=== PATIENT | female | born 1955 | race Caucasian/White ===

== ENCOUNTER → 2017-09-21 14:14 | Outpatient (CLI) | payer OTHER, SELFPAY ==
[2017-09-21 14:50] LABS: Add Manual Diff / Slide Review NO; Alanine Aminotransferase 27 IU/L (9-52); Albumin 4.2 g/dL (3.5-5.0); Albumin Globulin Ratio 1.2 (1.0-2.8); Alkaline Phosphatase 70 U/L (38-126); Aspartate Aminotransferase 19 IU/L (14-36); BUN Creatinine Ratio 21.4 (6-22); Basophils Percent Auto 0.9 % (0-2); Bilirubin Total 0.5 mg/dL (0.2-1.3); Blood Urea Nitrogen 15 mg/dL (7-17); Carbon Dioxide 28 mmol/L (22-32); Chloride 102 mmol/L (98-107); Eosinophils Percent Auto 2.4 % (2-4); Estimated Glomerular Filt Rate > 60.0 mL/min (>60); Globulin 3.4 g/dL (1.7-4.1); Glucose 143 mg/dL (80-110); HEMOLYSIS < 15 (0-50); Hematocrit 43.6 % (36-46); Hemoglobin 14.8 g/dL (12.0-16.0); Lymphocytes Percent Auto 23.3 % (25-40); Mean Corpuscular HGB Conc 33.9 % (30-36); Mean Corpuscular Hemoglobin 30.3 PG (26-34); Mean Corpuscular Volume 89.5 fL (80-100); Monocytes Percent Auto 6.3 % (3-14); Neutrophils Absolute Auto 6400 /uL (3000-5900); Neutrophils Percent Auto 67.1 % (50-75); Platelet Count 267 X10^3/uL (150-400); Potassium 4.1 mmol/L (3.4-5.1); Red Blood Cell Count 4.88 X10^6/uL (4.0-5.2); Red Cell Distribution Width 13.5 % (11.6-14.8); Sodium 142 mmol/L (137-145); Total Protein 7.6 g/dL (6.3-8.2); White Blood Cell Count 9.5 X10^3/uL (4.5-11.0)
[2017-09-23 16:27] LABS: Cancer Antigen 27.29 < 8 U/mL (< 38)
== END ==
PROVIDERS: Family Provider Internal Medicine; PCP Internal Medicine; Visit Provider Internal Medicine Hematology & Oncology
DX: C50.912 Malignant neoplasm of unspecified site of left female breast (principal)
CPT/HCPCS: 36415; 80053; 85025; 86300

== ENCOUNTER → 2017-09-26 11:25 | Outpatient (CLI) | payer OTHER, SELFPAY ==
--- NOTE | 2017-09-26 11:27 | DI.MG.S_ITS ---
UNILATERAL RIGHT DIGITAL SCREENING MAMMOGRAM 3D/2D WITH CAD POST MASTECTOMY: 09/26/2017 CLINICAL: Routine screening. Personal history of breast cancer. Comparison is made to exams dated: 09/19/2016 mammogram - [facility], 03/21/2016 mammogram, and 09/17/2015 mammogram - [facility]. The tissue of the right breast is predominantly fatty. Current study was also evaluated with a Computer Aided Detection (CAD) system. No significant masses, calcifications, or other findings are seen in the breast. There has been no significant interval change. IMPRESSION: NEGATIVE There is no mammographic evidence of malignancy. A 1 year screening mammogram is recommended. This exam was interpreted at Station ID: [id number]. NOTE: For mammograms, a report in lay terms will be sent to the patient. Approximately 15% of breast malignancies will not be visualized mammographically. In the management of a palpable breast mass, a negative mammogram must not discourage biopsy of a clinically suspicious lesion. Electronically Signed By: Lior gonzales/mei:09/26/2017 12:14:53 copy to: Mariah Roberts copy to: TIM GRANT letter sent: Normal Exam ACR BI-RADS Category 1: Negative [id number]
== END ==
PROVIDERS: Family Provider Internal Medicine; PCP Internal Medicine; Visit Provider Internal Medicine Hematology & Oncology
DX: Z12.31 Encounter for screening mammogram for malignant neoplasm of breast (principal); Z85.3 Personal history of malignant neoplasm of breast
CPT/HCPCS: 77063; 77065

== ENCOUNTER → 2017-12-14 10:57 | Outpatient (CLI) | payer OTHER, SELFPAY ==
[2017-12-14 12:50] LABS: Alanine Aminotransferase 21 IU/L (9-52); Albumin Globulin Ratio 1.2 (1.0-2.8); Alkaline Phosphatase 74 U/L (38-126); Aspartate Aminotransferase 19 IU/L (14-36); BUN Creatinine Ratio 21.3 (6-22); Bilirubin Total 0.3 mg/dL (0.2-1.3); Blood Urea Nitrogen 17 mg/dL (7-17); Calcium 9.5 mg/dL (8.4-10.2); Carbon Dioxide 28 mmol/L (22-32); Chloride 104 mmol/L (98-107); Estimated Glomerular Filt Rate > 60.0 mL/min (>60); Globulin 3.3 g/dL (1.7-4.1); Glucose 104 mg/dL (80-110); HEMOLYSIS < 15 (0-50); Potassium 4.3 mmol/L (3.4-5.1); Sodium 144 mmol/L (137-145); Total Protein 7.3 g/dL (6.3-8.2)
[2017-12-14 12:53] LABS: Add Manual Diff / Slide Review NO; Basophils Percent Auto 0.8 % (0-2); Eosinophils Percent Auto 0.9 % (2-4); Hematocrit 42.2 % (36-46); Lymphocytes Percent Auto 17.9 % (25-40); Mean Corpuscular HGB Conc 33.3 % (30-36); Mean Corpuscular Hemoglobin 30.2 PG (26-34); Mean Corpuscular Volume 90.7 fL (80-100); Monocytes Percent Auto 5.4 % (3-14); Neutrophils Absolute Auto 6000 /uL (3000-5900); Platelet Count 248 X10^3/uL (150-400); Red Blood Cell Count 4.66 X10^6/uL (4.0-5.2); Red Cell Distribution Width 13.4 % (11.6-14.8)
--- NOTE | 2017-12-14 15:03 | PC.NURSE ---
lymphocytes low at 19, ANC elevated at 6000. follow up appt on 12/20
[2017-12-15 15:53] LABS: Cancer Antigen 27.29 < 8 U/mL (< 38)
== END ==
PROVIDERS: Family Provider Internal Medicine; PCP Internal Medicine; Visit Provider Internal Medicine Hematology & Oncology
DX: C50.912 Malignant neoplasm of unspecified site of left female breast (principal)
CPT/HCPCS: 36415; 80053; 85025; 86300

== ENCOUNTER 2017-12-20 13:30 | Oncology outpatient (ONC) | payer OTHER, SELFPAY ==
--- NOTE | 2017-09-27 10:56 | ONC.PN ---
Assessment and Plan - Time Spent with Patient IMPRESSION: 1. T1c, N0, DUCTAL CARCINOMA THE LEFT BREAST STATUS DIAGNOSED MAY 05, 2016 ([id number] LABCO) POST LEFT MASTECTOMY ON AUGUST 10, 2016. ER/ME positive, HER2 negative. Completed adjuvant chemotherapy with 4 cycles of docetaxel/cyclophosphamide and started letrozole in January 2017. 2. Hot flashes and vasomotor symptoms, diminished with time. 3. Diabetes mellitus type 2. 4. Hypertension. 5. GERD. She continues on letrozole and is tolerating the medication fairly well at this time. She plans to take ?forever? and otherwise feels well and has no additional concerns today. She requests a refill of the medication to be sent to the [facility] pharmacy. No new symptoms or findings on examination to suggest recurrent disease. I offered encouragement to her and reminded her to call if new symptoms or concerns arise. Mammogram from September 26, 2017 read as negative. She will be due for annual screening mammogram of the right breast in 1 year. PLAN: 1. Continue letrozole daily for minimum 5 years, February 2022. Consider 10 years of treatment as discussed. 2. Self examination, monitor for new symptoms and call back as needed. 3. Calcium, vitamin-D and weight-bearing exercise program. 4. Annual screening mammogram of right breast September 2018. 5. Follow up with other providers as planned. 6. Return appointment here in 3 months. 7. CBC, CMP, CA 27.29 prior to the visit. DICTATED BY TIM GRANT MD MEDICAL ONCOLOGY AND HEMATOLOGY PN -Subjective Interval history: HEMATOLOGY/ONCOLOGY PROGRESS NOTE DATE OF SERVICE: SEPTEMBER 27, 2017 PATIENT NAME: DAI BAÑUELOS DATE OF : 1955 PCP: IDENTIFICATION: Ms. Bañuelos is a 62-year-old woman with history of T1c N0 infiltrating ductal carcinoma the left breast diagnosed May 05, 2016 and status post left mastectomy with sentinel node biopsy on August 10, 2016. ER/ME positive, HER2 negative. Oncotype score 20. She was also seen in consultation by Dr. Lydia Treviño at [facility] and proceeded with adjuvant chemotherapy utilizing Taxotere/Cytoxan every 21 days x4 cycles. Started letrozole in late January 2017 and continues on the medication currently. She was last seen here in clinic by Dr. Gore in June she says. Most recent note 03/20/2017. INTERVAL HISTORY: She currently is feeling well and continues on letrozole. She had some trouble with hot flashes initially but they waned after being on the medication for several months. She has some chronic joint aches and arthralgias but not too much worse since starting the medication. She attributes these mostly to her age and some mild arthritis symptoms. No new findings on self examination. Appetite and energy level are stable. She denies nausea or abdominal discomfort, cough, dyspnea, bone pain, headache or new neurologic symptoms. DETAILS FROM PREVIOUS NOTE: History of present illness Date of Service: 03/20/17 Primary Care Provider Primary Care Provider: Edna Guzman MD Hx of Present illness The patient is a 61 year old Female who is being seen in the clinic 03/20/17 for after completing adjuvant therapy for breast cancer. She was treated with taxotere and cyclophosphamide on 11/0701/11/2017 So she is approx one month out from completing adjuvant chemotherapy. The rationale for chemotherapy is covered in the previou note. She had an infiltrating ductal carcinoma, left breast, upper outer quadrant. She underwent left mastectomy with sentinel node biopsy on 08/10/2016. Pathology showed two foci of invasive carcinoma, 8 mm and 15 mm, intermediate nuclear grade, a separate focus of DCIS, > 2 mm margins, no LVI, pT1c, pN0 ER 100%, ME 100%, Her2 negative. See path report for details. Oncotype score was 20, in the indeterminate range. Considering her relatively young age intermediate grade tumor with 2 foci and her own desire to be aggressive and the Oncotype score, we elected to proceed forward with chemotherapy. I did discuss his case with Dr. Tracy Treviño at [facility] who agreed that the data on degree of benefit of chemotherapy in this setting is not overwhelming and it really comes down to the patient's desire to be aggressive which this patient wishes to be. I discussed with Dr. Oro and the different choices of chemotherapy she was fairly strongly in favor of avoiding doxorubicin and the patient was treated instead withTaxotere at 75 mg/m? day 1 and cyclophosphamide at 600 mg review squared day 1 cycled every 21 days for 4 cycles. Past Medical History AB 02 C-sections. Diabetes type II GERD Hypertension, improved, Hyperlipidemia Obesity Glaucoma Cataracts not yet operated on Postmenopausal age 57 Past Surgical History left mastectomy with sentinel node biopsy on 08/10/2016. 2 deliveries 197907/03/1984 Appendectomy 1970 Pain level (0-10): 0 Breast Resection Staging BC Primary Tumor T1- Tumor <= 20mm BC Regional Nodes N0-no regional metastasis BC Metastasis M0-No evidence metastasis BC Resection Histology Grade II Current Medications ASPIRIN (Aspirin EC) 81 MG TABLET.DR 81 MG PO QDAY (Reported) Take 1 tablet by mouth daily. CYANOCOBALAMIN (VITAMIN B-12) (Vitamin B-12) (Unknown Strength) TABLET (Unknown Dose) PO QDAY (Reported) FILGRASTIM (NEUPOGEN) 300 MCG/0.5 ML SYRINGE 480 MCG SQ QDAYP PRN low white cells inject 480 microgrgrams subcutaneously daily as directed Prescribed by Kelton Gore MD INSULIN ASPART 3ML PEN (NOVOLOG (SHORT ACTING) PEN) 100 UNIT/1 ML INSULN.PEN 14 UNITS SQ TIDCC (Reported) INSULIN GLARGINE 10ML (LANTUS) 100 UNIT/1 ML VIAL 60 UNITS SQ Q DAY (Reported) LETROZOLE (FEMARA) 2.5 MG TABLET 2.5 MG PO QDAY breast cancer prevention Prescribed by Kelton Gore MD Losartan Potassium (COZAAR) 25 MG TABLET 25 MG PO QDAY (Reported) METFORMIN HCL (GLUCOPHAGE) 1,000 MG TABLET 1,000 MG PO BIDCC (Reported) Simvastatin (ZOCOR) 40 MG TABLET 40 MG PO HS (Reported) [VITAMIN D] 5,000 MG PO QDAY (Reported) Allergies Coded Allergies: No Known Allergies (08/10/16) Smoking status:+ Former smoker Smoking pack year history 20 Subjective/Review of Systems Review of Systems GEN: Main impact on quality of life is hot flashes comes and goes in an instant Busy schedule, active every day; feeds deer and raccoons, 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 Assessment/Plan Assessment This is a 61 year old woman with Stage I intermediate grade ER+ HER2 - breast cancer with two foci and an oncotype core of 20. She underwent post lumpectomy chemotherapy and radiation and is now on letrozole. Started letrozole immediatelly fter last visit on Feb 08 Her DEXA scan is normal 02/20/2017 She has had left mastectomy and needs outine annual right sided mammography 09/19/2016 SHe will continue on letrozole and be seen in three months. Bone density is normal, and vitamin D level should be monoitored. Time spent with Patient A total of 30 minutes were spent on this appointment, greater than 50% of that time [id number] with the patient in counseling and coordination of care. Discussion with patient included lab results, [diagnosis], treatment options, risks and benefits. Plan for treatment 3 month f/u with CBC, CMP, CA 27-29. Copies to Sarah Roberts MD; Edna Guzman MD at [phone] <Electronically signed by Kelton Gore MD> (PLEASE NOTE): This report may have been all or partially generated using a voice recognition software program. While every effort has been made to edit content upon its completion, computer applications developer errors may occur. Please contact the [facility] [employer] Dept. at if there are any questions, or if further clarification is necessitated. - Additional ROS Additional ROS: Review of systems General: No fever, chills or weight loss. HEENT: No headache, vision change or dysphagia. Respiratory: No cough or dyspnea. Cardiac: No chest pain, PND or orthopnea. GI: Negative. : Negative. Musculoskeletal: No new bone pain. Neurologic: Negative. Home Medications and Allergies Home Medications Medication Instructions Recorded Confirmed Type [VITAMIN D] 5,000 mg PO QDAY #0 05/20/16 History aspirin 81 mg PO QDAY #0 05/20/16 History insulin aspart U-100 [Novolog 14 unit SQ TIDCC #0 05/20/16 History Flexpen U-100 Insulin] insulin glargine [Lantus U-100 60 unit SQ Q DAY #0 05/20/16 History Insulin] losartan [Cozaar] 25 mg PO QDAY #0 05/20/16 History metformin [Glucophage] 1,000 mg PO BIDCC #0 05/20/16 History simvastatin [Zocor] 40 mg PO HS #0 05/20/16 History cyanocobalamin (vitamin B-12) PO QDAY #0 07/04/16 History [Vitamin B-12] filgrastim [Neupogen] 480 mcg SQ QDAYP PRN #10 syr 12/21/16 Rx letrozole [Femara] 2.5 mg PO QDAY #90 tab 02/08/17 Rx letrozole 2.5 mg PO DAILY #90 tab 09/27/17 Rx Allergies Allergy/AdvReac Type Severity Reaction Status Date / Time No Known Allergies Allergy Uncoded 07/26/17 12:41 Exam - Constitutional positive no acute distress, positive cooperative - Routine HEENT Exam Head: Present: normocephalic, atraumatic. Absent: cushingoid faces Eye: Present: EOMI, PERRL. Absent: conjunctival icterus, scleral injection, periorbital swelling ENT: Present: mucous membranes moist, oropharynx clear - Routine Neck Exam Present: supple, full ROM. Absent: JVD, lymphadenopathy - Routine Chest/Breast/Axilla Exam Chest wall exam standard: Absent: tenderness, mass Breast: Present: left mastectomy. Absent: tenderness, mass, erythema Axillae: Absent: lymphadenopathy, mass, tenderness - Routine Respiratory Exam Present: Clear to auscultation bilaterally. Absent: accessory muscle use, rales, wheezes - Routine Cardiovascular Exam Present: RRR, S1, S2. Absent: murmur, S3 - Routine Abdominal Exam Present: soft, normoactive bowel sounds. Absent: tenderness, guarding, organomegaly Palpation/Percussion: Absent: hepatomegaly, splenomegaly - Routine Extremities Exam Absent: cyanosis, clubbing, edema - Routine Skin Exam Present: intact. Absent: cyanosis, erythema, jaundice, rash, ecchymosis - Routine Neurological Exam Present: alert, oriented X3, CN II-XII intact, moving all extremities, normal speech - Routine Psychiatric Exam Present: normal affect, normal thought process, cooperative, good judgment
--- NOTE | 2017-09-27 11:13 | P.PNONC_ITS ---
Assessment and Plan - Time Spent with Patient IMPRESSION: 1. T1c, N0, DUCTAL CARCINOMA THE LEFT BREAST STATUS DIAGNOSED MAY 05, 2016 ([id number] LABCO) POST LEFT MASTECTOMY ON AUGUST 10, 2016. ER/VA positive , HER2 negative. Completed adjuvant chemotherapy with 4 cycles of docetaxel/ cyclophosphamide and started letrozole in January 2017. 2. Hot flashes and vasomotor symptoms, diminished with time. 3. Diabetes mellitus type 2. 4. Hypertension. 5. GERD. She continues on letrozole and is tolerating the medication fairly well at this time. She plans to take ?forever? and otherwise feels well and has no additional concerns today. She requests a refill of the medication to be sent to the [facility] pharmacy. No new symptoms or findings on examination to suggest recurrent disease. I offered encouragement to her and reminded her to call if new symptoms or concerns arise. Mammogram from September 26, 2017 read as negative. She will be due for annual screening mammogram of the right breast in 1 year. PLAN: 1. Continue letrozole daily for minimum 5 years, February 2022. Consider 10 years of treatment as discussed. 2. Self examination, monitor for new symptoms and call back as needed. 3. Calcium, vitamin-D and weight-bearing exercise program. 4. Annual screening mammogram of right breast September 2018. 5. Follow up with other providers as planned. 6. Return appointment here in 3 months. 7. CBC, CMP, CA 27.29 prior to the visit. DICTATED BY TIM GRANT MD MEDICAL ONCOLOGY AND HEMATOLOGY PN -Subjective Interval history: HEMATOLOGY/ONCOLOGY PROGRESS NOTE DATE OF SERVICE: SEPTEMBER 27, 2017 PATIENT NAME: DAI BAÑUELOS DATE OF : 1955 PCP: IDENTIFICATION: Ms. Bañuelos is a 62-year-old woman with history of T1c N0 infiltrating ductal carcinoma the left breast diagnosed May 05, 2016 and status post left mastectomy with sentinel node biopsy on August 10, 2016. ER/VA positive, HER2 negative. Oncotype score 20. She was also seen in consultation by Dr. Lydia Treviño at [facility] and proceeded with adjuvant chemotherapy utilizing Taxotere/Cytoxan every 21 days x4 cycles. Started letrozole in late January 2017 and continues on the medication currently. She was last seen here in clinic by Dr. Gore in June she says. Most recent note 03/20/2017. INTERVAL HISTORY: She currently is feeling well and continues on letrozole. She had some trouble with hot flashes initially but they waned after being on the medication for several months. She has some chronic joint aches and arthralgias but not too much worse since starting the medication. She attributes these mostly to her age and some mild arthritis symptoms. No new findings on self examination. Appetite and energy level are stable. She denies nausea or abdominal discomfort, cough, dyspnea, bone pain, headache or new neurologic symptoms. DETAILS FROM PREVIOUS NOTE: History of present illness Date of Service: 03/20/17 Primary Care Provider Primary Care Provider: Edna Guzman MD Hx of Present illness The patient is a 61 year old Female who is being seen in the clinic 03/20/17 for after completing adjuvant therapy for breast cancer. She was treated with taxotere and cyclophosphamide on 11/0701/11/2017 So she is approx one month out from completing adjuvant chemotherapy. The rationale for chemotherapy is covered in the previou note. She had an infiltrating ductal carcinoma, left breast, upper outer quadrant. She underwent left mastectomy with sentinel node biopsy on 08/10/2016. Pathology showed two foci of invasive carcinoma, 8 mm and 15 mm, intermediate nuclear grade, a separate focus of DCIS, > 2 mm margins, no LVI, pT1c, pN0 ER 100%, VA 100%, Her2 negative. See path report for details. Oncotype score was 20, in the indeterminate range. Considering her relatively young age intermediate grade tumor with 2 foci and her own desire to be aggressive and the Oncotype score, we elected to proceed forward with chemotherapy. I did discuss his case with Dr. Tracy Treviño at [facility] [place] who agreed that the data on degree of benefit of chemotherapy in this setting is not overwhelming and it really comes down to the patient's desire to be aggressive which this patient wishes to be. I discussed with Dr. Oro and the different choices of chemotherapy she was fairly strongly in favor of avoiding doxorubicin and the patient was treated instead withTaxotere at 75 mg/m? day 1 and cyclophosphamide at 600 mg review squared day 1 cycled every 21 days for 4 cycles. Past Medical History AB 02 C-sections. Diabetes type II GERD Hypertension, improved, Hyperlipidemia Obesity Glaucoma Cataracts not yet operated on Postmenopausal age 57 Past Surgical History left mastectomy with sentinel node biopsy on 08/10/2016. 2 deliveries 197907/03/1984 Appendectomy 1970 Pain level (0-10): 0 Breast Resection Staging BC Primary Tumor T1- Tumor <= 20mm BC Regional Nodes N0-no regional metastasis BC Metastasis M0-No evidence metastasis BC Resection Histology Grade II Current Medications ASPIRIN (Aspirin EC) 81 MG TABLET.DR 81 MG PO QDAY (Reported) Take 1 tablet by mouth daily. CYANOCOBALAMIN (VITAMIN B-12) (Vitamin B-12) (Unknown Strength) TABLET ( Unknown Dose) PO QDAY (Reported) FILGRASTIM (NEUPOGEN) 300 MCG/0.5 ML SYRINGE 480 MCG SQ QDAYP PRN low white cells inject 480 microgrgrams subcutaneously daily as directed Prescribed by Kelton Gore MD INSULIN ASPART 3ML PEN (NOVOLOG (SHORT ACTING) PEN) 100 UNIT/1 ML INSULN.PEN 14 UNITS SQ TIDCC (Reported) INSULIN GLARGINE 10ML (LANTUS) 100 UNIT/1 ML VIAL 60 UNITS SQ Q DAY (Reported ) LETROZOLE (FEMARA) 2.5 MG TABLET 2.5 MG PO QDAY breast cancer prevention Prescribed by Kelton Gore MD Losartan Potassium (COZAAR) 25 MG TABLET 25 MG PO QDAY (Reported) METFORMIN HCL (GLUCOPHAGE) 1,000 MG TABLET 1,000 MG PO BIDCC (Reported) Simvastatin (ZOCOR) 40 MG TABLET 40 MG PO HS (Reported) [VITAMIN D] 5,000 MG PO QDAY (Reported) Allergies Coded Allergies: No Known Allergies (08/10/16) Smoking status:+ Former smoker Smoking pack year history 20 Subjective/Review of Systems Review of Systems GEN: Main impact on quality of life is hot flashes comes and goes in an instant Busy schedule, active every day; feeds deer and raccoons, [facility] [employer] [facility] [place] [facility] The remainder of the fourteen system review is negative. Assessment/Plan Assessment This is a 61 year old woman with Stage I intermediate grade ER+ HER2 - breast cancer with two foci and an oncotype core of 20. She underwent post lumpectomy chemotherapy and radiation and is now on letrozole. Started letrozole immediatelly fter last visit on Feb 08 Her DEXA scan is normal 02/20/2017 She has had left mastectomy and needs outine annual right sided mammography 2016 SHe will continue on letrozole and be seen in three months. Bone density is normal, and vitamin D level should be monoitored. Time spent with Patient A total of 30 minutes were spent on this appointment, greater than 50% of that time [id number] with the patient in counseling and coordination of care. Discussion with patient included lab results, [diagnosis], treatment options, risks and benefits. Plan for treatment 3 month f/u with CBC, CMP, CA 27-29. Copies to Sarah Roberts MD; Edna Guzman MD at [id number] <Electronically signed by Kelton Gore MD> (PLEASE NOTE): This report may have been all or partially generated using a voice recognition software program. While every effort has been made to edit content upon its completion, pipelines manager errors may occur. Please contact the [facility] [employer] Dept. at if there are any questions, or if further clarification is necessitated. - Additional ROS Additional ROS: Review of systems General: No fever, chills or weight loss. HEENT: No headache, vision change or dysphagia. Respiratory: No cough or dyspnea. Cardiac: No chest pain, PND or orthopnea. GI: Negative. : Negative. Musculoskeletal: No new bone pain. Neurologic: Negative. Home Medications and Allergies Home Medications Medication Instructions Recorded Confirmed Type [VITAMIN D] 5,000 mg PO QDAY #0 05/20/16 History aspirin 81 mg PO QDAY #0 05/20/16 History insulin aspart U-100 [Novolog 14 unit SQ TIDCC #0 05/20/16 History Flexpen U-100 Insulin] insulin glargine [Lantus U-100 60 unit SQ Q DAY #0 05/20/16 History Insulin] losartan [Cozaar] 25 mg PO QDAY #0 05/20/16 History metformin [Glucophage] 1,000 mg PO BIDCC #0 05/20/16 History simvastatin [Zocor] 40 mg PO HS #0 05/20/16 History cyanocobalamin (vitamin B-12) PO QDAY #0 07/04/16 History [Vitamin B-12] filgrastim [Neupogen] 480 mcg SQ QDAYP PRN #10 syr 12/21/16 Rx letrozole [Femara] 2.5 mg PO QDAY #90 tab 02/08/17 Rx letrozole 2.5 mg PO DAILY #90 tab 09/27/17 Rx Allergies Allergy/AdvReac Type Severity Reaction Status Date / Time No Known Allergies Allergy Uncoded 07/26/17 12:41 Exam - Constitutional positive no acute distress, positive cooperative - Routine HEENT Exam Head: Present: normocephalic, atraumatic. Absent: cushingoid faces Eye: Present: EOMI, PERRL. Absent: conjunctival icterus, scleral injection, periorbital swelling ENT: Present: mucous membranes moist, oropharynx clear - Routine Neck Exam Present: supple, full ROM. Absent: JVD, lymphadenopathy - Routine Chest/Breast/Axilla Exam Chest wall exam standard: Absent: tenderness, mass Breast: Present: left mastectomy. Absent: tenderness, mass, erythema Axillae: Absent: lymphadenopathy, mass, tenderness - Routine Respiratory Exam Present: Clear to auscultation bilaterally. Absent: accessory muscle use, rales , wheezes - Routine Cardiovascular Exam Present: RRR, S1, S2. Absent: murmur, S3 - Routine Abdominal Exam Present: soft, normoactive bowel sounds. Absent: tenderness, guarding, organomegaly Palpation/Percussion: Absent: hepatomegaly, splenomegaly - Routine Extremities Exam Absent: cyanosis, clubbing, edema - Routine Skin Exam Present: intact. Absent: cyanosis, erythema, jaundice, rash, ecchymosis - Routine Neurological Exam Present: alert, oriented X3, CN II-XII intact, moving all extremities, normal speech - Routine Psychiatric Exam Present: normal affect, normal thought process, cooperative, good judgment
[2017-09-27 13:16] VITALS: BP 122/79; PULSE 110; RESP 16; TEMP 36.8; O2SAT 97
[2017-12-20 13:48] VITALS: BP 136/78; PULSE 110; RESP 18; TEMP 37; O2SAT 96
--- NOTE | 2017-12-20 14:20 | ONC.APRN.PN ---
Assessment and Plan (1) Breast cancer, left Current visit: No Status: Acute 12/20/17 14:24 Ms. Bañuelos is a 62-year-old woman with history of T1c N0 infiltrating ductal carcinoma the left breast diagnosed May 05, 2016 and status post left mastectomy with sentinel node biopsy on August 10, 2016. ER/MD positive, HER2 negative. Oncotype score 20. She was also seen in consultation by Dr. Lydia Treviño at [facility] and proceeded with adjuvant chemotherapy utilizing Taxotere/Cytoxan every 21 days x4 cycles. Started letrozole in late January 2017 and continues on the medication currently. Reassuringly on exam today no clinical signs or symptoms to suggest disease recurrence. CBC, CMP unremarkable. CA 27-29 remains <8. She had her annual screening unilateral right breast mammogram earlier this year in September. No evidence of malignancy with recommendation to continue with annual screening. She is due for screening colonoscopy, she will discuss with her PCP. RTC in 3 months for provider visit cbc cmp ca 27.29. If exam unremarkable we can transition to Q 6 month visits. 12/20/17 14:27 12/20/17 14:32 - Time Spent with Patient 25 mins PN -Subjective Interval history: HEMATOLOGY/ONCOLOGY PROGRESS NOTE DATE OF SERVICE: 12/20/2017 PATIENT NAME: DAI BAÑUELOS DATE OF : 1955 PCP: IDENTIFICATION: Ms. Bañuelos is a 62-year-old woman with history of T1c N0 infiltrating ductal carcinoma the left breast diagnosed May 05, 2016 and status post left mastectomy with sentinel node biopsy on August 10, 2016. ER/MD positive, HER2 negative. Oncotype score 20. She was also seen in consultation by Dr. Lydia Treviño at [facility] and proceeded with adjuvant chemotherapy utilizing Taxotere/Cytoxan every 21 days x4 cycles. Started letrozole in late January 2017 and continues on the medication currently. INTERVAL HISTORY: She currently is feeling well and continues on letrozole. She had some trouble with hot flashes initially but they waned after being on the medication for several months. She has some chronic joint aches and arthralgias but not too much worse since starting the medication. She attributes these mostly to her age and some mild arthritis symptoms. No new findings on self examination. Appetite and energy level are stable. She denies nausea or abdominal discomfort, cough, dyspnea, bone pain, headache or new neurologic symptoms. She remains quite active on her property in [place], she has 2 dogs, 2 cats and she feeds the birds and deer. She has owls and woodpeckers, even has 2 stellar kassandra who visit regularly. DETAILS FROM PREVIOUS NOTE: History of present illness Date of Service: 03/20/17 Primary Care Provider Primary Care Provider: Edna Guzman MD Hx of Present illness The patient is a 61 year old Female who is being seen in the clinic 03/20/17 for after completing adjuvant therapy for breast cancer. She was treated with taxotere and cyclophosphamide on 11/0701/11/2017 So she is approx one month out from completing adjuvant chemotherapy. The rationale for chemotherapy is covered in the previou note. She had an infiltrating ductal carcinoma, left breast, upper outer quadrant. She underwent left mastectomy with sentinel node biopsy on 08/10/2016. Pathology showed two foci of invasive carcinoma, 8 mm and 15 mm, intermediate nuclear grade, a separate focus of DCIS, > 2 mm margins, no LVI, pT1c, pN0 ER 100%, MD 100%, Her2 negative. See path report for details. Oncotype score was 20, in the indeterminate range. Considering her relatively young age intermediate grade tumor with 2 foci and her own desire to be aggressive and the Oncotype score, we elected to proceed forward with chemotherapy. I did discuss his case with Dr. Tracy Treviño at [facility] [place] who agreed that the data on degree of benefit of chemotherapy in this setting is not overwhelming and it really comes down to the patient's desire to be aggressive which this patient wishes to be. I discussed with Dr. Oro and the different choices of chemotherapy she was fairly strongly in favor of avoiding doxorubicin and the patient was treated instead withTaxotere at 75 mg/m? day 1 and cyclophosphamide at 600 mg review squared day 1 cycled every 21 days for 4 cycles. Past Medical History AB 02 C-sections. Diabetes type II GERD Hypertension, improved, Hyperlipidemia Obesity Glaucoma Cataracts not yet operated on Postmenopausal age 57 Past Surgical History left mastectomy with sentinel node biopsy on 08/10/2016. 2 deliveries 197907/03/1984 Appendectomy 1969 Pain level (0-10): 0 Breast Resection Staging BC Primary Tumor T1- Tumor <= 20mm BC Regional Nodes N0-no regional metastasis BC Metastasis M0-No evidence metastasis BC Resection Histology Grade II Current Medications ASPIRIN (Aspirin EC) 81 MG TABLET.DR 81 MG PO QDAY (Reported) Take 1 tablet by mouth daily. CYANOCOBALAMIN (VITAMIN B-12) (Vitamin B-12) (Unknown Strength) TABLET (Unknown Dose) PO QDAY (Reported) FILGRASTIM (NEUPOGEN) 300 MCG/0.5 ML SYRINGE 480 MCG SQ QDAYP PRN low white cells inject 480 microgrgrams subcutaneously daily as directed Prescribed by Kelton Gore MD INSULIN ASPART 3ML PEN (NOVOLOG (SHORT ACTING) PEN) 100 UNIT/1 ML INSULN.PEN 14 UNITS SQ TIDCC (Reported) INSULIN GLARGINE 10ML (LANTUS) 100 UNIT/1 ML VIAL 60 UNITS SQ Q DAY (Reported) LETROZOLE (FEMARA) 2.5 MG TABLET 2.5 MG PO QDAY breast cancer prevention Prescribed by Kelton Gore MD Losartan Potassium (COZAAR) 25 MG TABLET 25 MG PO QDAY (Reported) METFORMIN HCL (GLUCOPHAGE) 1,000 MG TABLET 1,000 MG PO BIDCC (Reported) Simvastatin (ZOCOR) 40 MG TABLET 40 MG PO HS (Reported) [VITAMIN D] 5,000 MG PO QDAY (Reported) Allergies Coded Allergies: No Known Allergies (08/10/16) Smoking status:+ Former smoker Smoking pack year history 20 Subjective/Review of Systems Review of Systems GEN: Main impact on quality of life is hot flashes comes and goes in an instant Busy schedule, active every day; feeds deer and raccoons, decorated tree at [facility] [employer] They moved [facility] from [facility], [facility] The remainder of the fourteen system review is negative. Assessment/Plan Assessment This is a 61 year old woman with Stage I intermediate grade ER+ HER2 - breast cancer with two foci and an oncotype core of 20. She underwent post lumpectomy chemotherapy and radiation and is now on letrozole. Started letrozole immediatelly fter last visit on Feb 08 Her DEXA scan is normal 02/20/2017 She has had left mastectomy and needs outine annual right sided mammography 09/19/2016 SHe will continue on letrozole and be seen in three months. Bone density is normal, and vitamin D level should be monoitored. Time spent with Patient A total of 30 minutes were spent on this appointment, greater than 50% of that time [id number] with the patient in counseling and coordination of care. Discussion with patient included lab results, [diagnosis], treatment options, risks and benefits. Plan for treatment 3 month f/u with CBC, CMP, CA 27-29. Copies to Sarah Roberts MD; Edna Guzman MD at [phone] <Electronically signed by Kelton Gore MD> (PLEASE NOTE): This report may have been all or partially generated using a voice recognition software program. While every effort has been made to edit content upon its completion, hand reamer errors may occur. Please contact the [facility] Risk Management Services Dept. at if there are any questions, or if further clarification is necessitated. Home Medications and Allergies Home Medications Medication Instructions Recorded Confirmed Type [VITAMIN D] 5,000 mg PO QDAY #0 05/20/16 09/27/17 History aspirin 81 mg PO QDAY #0 05/20/16 09/27/17 History insulin aspart U-100 [Novolog 14 unit SQ TIDCC #0 05/20/16 09/27/17 History Flexpen U-100 Insulin] insulin glargine [Lantus U-100 60 unit SQ Q DAY #0 05/20/16 09/27/17 History Insulin] losartan [Cozaar] 25 mg PO QDAY #0 05/20/16 09/27/17 History metformin [Glucophage] 1,000 mg PO BIDCC #0 05/20/16 09/27/17 History simvastatin [Zocor] 40 mg PO HS #0 05/20/16 09/27/17 History cyanocobalamin (vitamin B-12) 250 mcg PO QDAY #0 07/04/16 09/27/17 History [Vitamin B-12] letrozole [Femara] 2.5 mg PO QDAY #90 tab 02/08/17 09/27/17 Rx Probiotic PO QAM 09/27/17 History letrozole 2.5 mg PO DAILY #90 tab 09/27/17 09/27/17 Rx magnesium 500 mg PO DAILY 09/27/17 12/20/17 History Allergies Allergy/AdvReac Type Severity Reaction Status Date / Time No Known Allergies Allergy Uncoded 07/26/17 12:41 Exam Vital signs: Last Vital Signs Temp 98.6 F 12/20/17 13:48 Pulse 110 H 12/20/17 13:48 Resp 18 12/20/17 13:48 BP 136/78 12/20/17 13:48 Pulse Ox 96 12/20/17 13:48 - Constitutional positive no acute distress - Routine HEENT Exam Eye: Present: conjunctivae pink. Absent: conjunctival icterus, scleral injection ENT: Present: mucous membranes moist, oropharynx clear - Routine Neck Exam Present: supple. Absent: lymphadenopathy - Routine Chest/Breast/Axilla Exam Chest wall exam standard: Absent: tenderness, mass Breast: Present: left mastectomy. Absent: tenderness, mass Axillae: Absent: lymphadenopathy, mass, tenderness - Routine Respiratory Exam Present: Clear to auscultation bilaterally. Absent: rales, rhonchi, wheezes - Routine Cardiovascular Exam Present: RRR, S1, S2. Absent: murmur, gallop, rubs, JVD - Routine Abdominal Exam Present: soft, normoactive bowel sounds. Absent: tenderness, distended, organomegaly, mass - Routine Extremities Exam Absent: edema, calf tenderness - Routine Skin Exam Present: intact, normal turgor. Absent: petechiae, rash - Routine Neurological Exam Present: alert, oriented X3 - Routine Psychiatric Exam Present: normal affect
--- NOTE | 2017-12-20 14:24 | P.PNONC_ITS ---
Assessment and Plan (1) Breast cancer, left Current visit: No Status: Acute 12/20/17 14:24 Ms. Bañuelos is a 62-year-old woman with history of T1c N0 infiltrating ductal carcinoma the left breast diagnosed May 05, 2016 and status post left mastectomy with sentinel node biopsy on August 10, 2016. ER/FL positive, HER2 negative. Oncotype score 20. She was also seen in consultation by Dr. Lydia Treviño at [facility] and proceeded with adjuvant chemotherapy utilizing Taxotere/Cytoxan every 21 days x4 cycles. Started letrozole in late January 2017 and continues on the medication currently. Reassuringly on exam today no clinical signs or symptoms to suggest disease recurrence. CBC, CMP unremarkable. CA 27-29 remains <8. She had her annual screening unilateral right breast mammogram earlier this year in September. No evidence of malignancy with recommendation to continue with annual screening. She is due for screening colonoscopy, she will discuss with her PCP. RTC in 3 months for provider visit cbc cmp ca 27.29. If exam unremarkable we can transition to Q 6 month visits. 12/20/17 14:27 12/20/17 14:32 - Time Spent with Patient 25 mins PN -Subjective Interval history: HEMATOLOGY/ONCOLOGY PROGRESS NOTE DATE OF SERVICE: 12/20/2017 PATIENT NAME: DAI BAÑUELOS DATE OF : 1955 PCP: IDENTIFICATION: Ms. Bañuelos is a 62-year-old woman with history of T1c N0 infiltrating ductal carcinoma the left breast diagnosed May 05, 2016 and status post left mastectomy with sentinel node biopsy on August 10, 2016. ER/FL positive, HER2 negative. Oncotype score 20. She was also seen in consultation by Dr. Lydia Treviño at [facility] and proceeded with adjuvant chemotherapy utilizing Taxotere/Cytoxan every 21 days x4 cycles. Started letrozole in late January 2017 and continues on the medication currently. INTERVAL HISTORY: She currently is feeling well and continues on letrozole. She had some trouble with hot flashes initially but they waned after being on the medication for several months. She has some chronic joint aches and arthralgias but not too much worse since starting the medication. She attributes these mostly to her age and some mild arthritis symptoms. No new findings on self examination. Appetite and energy level are stable. She denies nausea or abdominal discomfort, cough, dyspnea, bone pain, headache or new neurologic symptoms. She remains quite active on her property in [place], she has 2 dogs, 2 cats and she feeds the birds and deer. She has owls and woodpeckers, even has 2 stellar kassandra who visit regularly. DETAILS FROM PREVIOUS NOTE: History of present illness Date of Service: 03/20/17 Primary Care Provider Primary Care Provider: Edna Guzman MD Hx of Present illness The patient is a 61 year old Female who is being seen in the clinic 03/20/17 for after completing adjuvant therapy for breast cancer. She was treated with taxotere and cyclophosphamide on 11/0701/11/2017 So she is approx one month out from completing adjuvant chemotherapy. The rationale for chemotherapy is covered in the previou note. She had an infiltrating ductal carcinoma, left breast, upper outer quadrant. She underwent left mastectomy with sentinel node biopsy on 08/10/2016. Pathology showed two foci of invasive carcinoma, 8 mm and 15 mm, intermediate nuclear grade, a separate focus of DCIS, > 2 mm margins, no LVI, pT1c, pN0 ER 100%, FL 100%, Her2 negative. See path report for details. Oncotype score was 20, in the indeterminate range. Considering her relatively young age intermediate grade tumor with 2 foci and her own desire to be aggressive and the Oncotype score, we elected to proceed forward with chemotherapy. I did discuss his case with Dr. Tracy Treviño at [facility] [place] who agreed that the data on degree of benefit of chemotherapy in this setting is not overwhelming and it really comes down to the patient's desire to be aggressive which this patient wishes to be. I discussed with Dr. Oor and the different choices of chemotherapy she was fairly strongly in favor of avoiding doxorubicin and the patient was treated instead withTaxotere at 75 mg/m? day 1 and cyclophosphamide at 600 mg review squared day 1 cycled every 21 days for 4 cycles. Past Medical History AB 02 C-sections. Diabetes type II GERD Hypertension, improved, Hyperlipidemia Obesity Glaucoma Cataracts not yet operated on Postmenopausal age 57 Past Surgical History left mastectomy with sentinel node biopsy on 08/10/2016. 2 deliveries 197907/03/1984 Appendectomy 1969 Pain level (0-10): 0 Breast Resection Staging BC Primary Tumor T1- Tumor <= 20mm BC Regional Nodes N0-no regional metastasis BC Metastasis M0-No evidence metastasis BC Resection Histology Grade II Current Medications ASPIRIN (Aspirin EC) 81 MG TABLET.DR 81 MG PO QDAY (Reported) Take 1 tablet by mouth daily. CYANOCOBALAMIN (VITAMIN B-12) (Vitamin B-12) (Unknown Strength) TABLET ( Unknown Dose) PO QDAY (Reported) FILGRASTIM (NEUPOGEN) 300 MCG/0.5 ML SYRINGE 480 MCG SQ QDAYP PRN low white cells inject 480 microgrgrams subcutaneously daily as directed Prescribed by Kelton Gore MD INSULIN ASPART 3ML PEN (NOVOLOG (SHORT ACTING) PEN) 100 UNIT/1 ML INSULN.PEN 14 UNITS SQ TIDCC (Reported) INSULIN GLARGINE 10ML (LANTUS) 100 UNIT/1 ML VIAL 60 UNITS SQ Q DAY (Reported ) LETROZOLE (FEMARA) 2.5 MG TABLET 2.5 MG PO QDAY breast cancer prevention Prescribed by Kelotn Gore MD Losartan Potassium (COZAAR) 25 MG TABLET 25 MG PO QDAY (Reported) METFORMIN HCL (GLUCOPHAGE) 1,000 MG TABLET 1,000 MG PO BIDCC (Reported) Simvastatin (ZOCOR) 40 MG TABLET 40 MG PO HS (Reported) [VITAMIN D] 5,000 MG PO QDAY (Reported) Allergies Coded Allergies: No Known Allergies (08/10/16) Smoking status:+ Former smoker Smoking pack year history 20 Subjective/Review of Systems Review of Systems GEN: Main impact on quality of life is hot flashes comes and goes in an instant Busy schedule, active every day; feeds deer and raccoons, decorated tree at [facility] [place] They moved [facility] from [facility], [facility] The remainder of the fourteen system review is negative. Assessment/Plan Assessment This is a 61 year old woman with Stage I intermediate grade ER+ HER2 - breast cancer with two foci and an oncotype core of 20. She underwent post lumpectomy chemotherapy and radiation and is now on letrozole. Started letrozole immediatelly fter last visit on Feb 08 Her DEXA scan is normal 02/20/2017 She has had left mastectomy and needs outine annual right sided mammography 2016 SHe will continue on letrozole and be seen in three months. Bone density is normal, and vitamin D level should be monoitored. Time spent with Patient A total of 30 minutes were spent on this appointment, greater than 50% of that time [id number] with the patient in counseling and coordination of care. Discussion with patient included lab results, [diagnosis], treatment options, risks and benefits. Plan for treatment 3 month f/u with CBC, CMP, CA 27-29. Copies to Sarah Roberts MD; Edna Guzman MD at [phone] <Electronically signed by Kelton Gore MD> (PLEASE NOTE): This report may have been all or partially generated using a voice recognition software program. While every effort has been made to edit content upon its completion, health services coordinator errors may occur. Please contact the [facility] Services Dept. at if there are any questions, or if further clarification is necessitated. Home Medications and Allergies Home Medications Medication Instructions Recorded Confirmed Type [VITAMIN D] 5,000 mg PO QDAY #0 05/20/16 09/27/17 History aspirin 81 mg PO QDAY #0 05/20/16 09/27/17 History insulin aspart U-100 [Novolog 14 unit SQ TIDCC #0 05/20/16 09/27/17 History Flexpen U-100 Insulin] insulin glargine [Lantus U-100 60 unit SQ Q DAY #0 05/20/16 09/27/17 History Insulin] losartan [Cozaar] 25 mg PO QDAY #0 05/20/16 09/27/17 History metformin [Glucophage] 1,000 mg PO BIDCC #0 05/20/16 09/27/17 History simvastatin [Zocor] 40 mg PO HS #0 05/20/16 09/27/17 History cyanocobalamin (vitamin B-12) 250 mcg PO QDAY #0 07/04/16 09/27/17 History [Vitamin B-12] letrozole [Femara] 2.5 mg PO QDAY #90 tab 02/08/17 09/27/17 Rx Probiotic PO QAM 09/27/17 History letrozole 2.5 mg PO DAILY #90 tab 09/27/17 09/27/17 Rx magnesium 500 mg PO DAILY 09/27/17 12/20/17 History Allergies Allergy/AdvReac Type Severity Reaction Status Date / Time No Known Allergies Allergy Uncoded 07/26/17 12:41 Exam Vital signs: Last Vital Signs Temp 98.6 F 12/20/17 13:48 Pulse 110 H 12/20/17 13:48 Resp 18 12/20/17 13:48 BP 136/78 12/20/17 13:48 Pulse Ox 96 12/20/17 13:48 - Constitutional positive no acute distress - Routine HEENT Exam Eye: Present: conjunctivae pink. Absent: conjunctival icterus, scleral injection ENT: Present: mucous membranes moist, oropharynx clear - Routine Neck Exam Present: supple. Absent: lymphadenopathy - Routine Chest/Breast/Axilla Exam Chest wall exam standard: Absent: tenderness, mass Breast: Present: left mastectomy. Absent: tenderness, mass Axillae: Absent: lymphadenopathy, mass, tenderness - Routine Respiratory Exam Present: Clear to auscultation bilaterally. Absent: rales, rhonchi, wheezes - Routine Cardiovascular Exam Present: RRR, S1, S2. Absent: murmur, gallop, rubs, JVD - Routine Abdominal Exam Present: soft, normoactive bowel sounds. Absent: tenderness, distended, organomegaly, mass - Routine Extremities Exam Absent: edema, calf tenderness - Routine Skin Exam Present: intact, normal turgor. Absent: petechiae, rash - Routine Neurological Exam Present: alert, oriented X3 - Routine Psychiatric Exam Present: normal affect
== END 2017-12-21 14:57 | disposition home or self-care (01) ==
PROVIDERS: Family Provider Internal Medicine; PCP Internal Medicine; Visit Provider Internal Medicine Hematology & Oncology
DX: C50.412 Malignant neoplasm of upper-outer quadrant of left female breast (principal); Z17.0 Estrogen receptor positive status [ER+]; Z79.811 Long term (current) use of aromatase inhibitors; Z87.891 Personal history of nicotine dependence
CPT/HCPCS: 99214

== ENCOUNTER → 2018-03-14 14:39 | Outpatient (CLI) | payer OTHER, SELFPAY ==
[2018-03-14 15:13] LABS: Add Manual Diff / Slide Review NO; Basophils Percent Auto 1.3 % (0-2); Eosinophils Percent Auto 2.8 % (2-4); Hematocrit 44.8 % (36-46); Hemoglobin 15.2 g/dL (12.0-16.0); Lymphocytes Percent Auto 23.1 % (25-40); Mean Corpuscular HGB Conc 33.8 % (30-36); Mean Corpuscular Hemoglobin 30.1 PG (26-34); Mean Corpuscular Volume 88.9 fL (80-100); Monocytes Percent Auto 5.4 % (3-14); Neutrophils Absolute Auto 7300 /uL (3000-5900); Neutrophils Percent Auto 67.4 % (50-75); Platelet Count 280 X10^3/uL (150-400); Red Blood Cell Count 5.04 X10^6/uL (4.0-5.2); Red Cell Distribution Width 13.7 % (11.6-14.8); White Blood Cell Count 10.8 X10^3/uL (4.5-11.0)
[2018-03-14 16:49] LABS: Alanine Aminotransferase 26 IU/L (9-52); Albumin 4.2 g/dL (3.5-5.0); Albumin Globulin Ratio 1.4 (1.0-2.8); Alkaline Phosphatase 84 U/L (38-126); Aspartate Aminotransferase 21 IU/L (14-36); Bilirubin Total 0.3 mg/dL (0.2-1.3); Blood Urea Nitrogen 20 mg/dL (7-17); Calcium 9.6 mg/dL (8.4-10.2); Carbon Dioxide 24 mmol/L (22-32); Chloride 104 mmol/L (98-107); Estimated Glomerular Filt Rate > 60.0 mL/min (>60); Globulin 2.9 g/dL (1.7-4.1); Glucose 130 mg/dL (80-110); HEMOLYSIS < 15 (0-50); Potassium 4.4 mmol/L (3.4-5.1); Sodium 143 mmol/L (137-145); Total Protein 7.1 g/dL (6.3-8.2)
[2018-03-16 15:28] LABS: Cancer Antigen 27.29 < 8 U/mL (< 38)
== END ==
PROVIDERS: Visit Provider Nurse Practitioner Gerontology
DX: C50.912 Malignant neoplasm of unspecified site of left female breast (principal)
CPT/HCPCS: 36415; 80053; 85025; 86300

== ENCOUNTER → 2018-09-18 15:49 | Outpatient (CLI) | payer OTHER, SELFPAY ==
[2018-09-18 16:07] LABS: Add Manual Diff / Slide Review NO; Basophils Absolute Auto 100 /uL (0-100); Basophils Percent Auto 0.7 % (0-2); Eosinophils Absolute Auto 200 /uL (0-450); Eosinophils Percent Auto 1.8 % (2-4); Hematocrit 43.9 % (36-46); Hemoglobin 14.5 g/dL (12.0-16.0); Lymphocytes Absolute Auto 2400 /uL (1100-4500); Lymphocytes Percent Auto 23.8 % (25-40); Mean Corpuscular HGB Conc 33.1 % (30-36); Mean Corpuscular Hemoglobin 29.6 PG (26-34); Mean Corpuscular Volume 89.4 fL (80-100); Monocytes Absolute Auto 600 /uL (0-900); Monocytes Percent Auto 6.4 % (3-14); Neutrophils Absolute Auto 6800 /uL (1500-7000); Neutrophils Percent Auto 67.3 % (50-75); Platelet Count 277 X10^3/uL (150-400); Red Blood Cell Count 4.91 X10^6/uL (4.0-5.2); Red Cell Distribution Width 13.5 % (11.6-14.8); White Blood Cell Count 10.2 X10^3/uL (4.5-11.0)
[2018-09-18 16:24] LABS: Alanine Aminotransferase 13 IU/L (9-52); Albumin 4.4 g/dL (3.5-5.0); Albumin Globulin Ratio 1.3 (1.0-2.8); Alkaline Phosphatase 79 U/L (38-126); Aspartate Aminotransferase 17 IU/L (14-36); BUN Creatinine Ratio 27.5 (6-22); Bilirubin Total 0.3 mg/dL (0.2-1.3); Blood Urea Nitrogen 22 mg/dL (7-17); Calcium 10.6 mg/dL (8.4-10.2); Carbon Dioxide 29 mmol/L (22-32); Chloride 102 mmol/L (98-107); Estimated Glomerular Filt Rate > 60.0 mL/min (>60); Globulin 3.4 g/dL (1.7-4.1); Glucose 103 mg/dL (80-110); HEMOLYSIS < 15 (0-50); Sodium 140 mmol/L (137-145); Total Protein 7.8 g/dL (6.3-8.2)
[2018-09-22 10:20] LABS: Cancer Antigen 27.29 10 U/mL (< 38)
== END ==
DX: C50.912 Malignant neoplasm of unspecified site of left female breast (principal)
CPT/HCPCS: 36415; 80053; 85025; 86300

== ENCOUNTER → 2018-09-27 10:48 | Outpatient (CLI) | payer OTHER, SELFPAY ==
--- NOTE | 2018-09-27 | DI.MG.S_ITS ---
UNILATERAL RIGHT DIGITAL SCREENING MAMMOGRAM 3D/2D WITH CAD: 09/27/2018 CLINICAL: Persoanl history of breast cancer Routine screening. Comparison is made to exams dated: 09/26/2017 mammogram, 09/19/2016 mammogram - [facility], and 03/21/2016 mammogram - [facility]. The tissue of right breast is predominantly fatty. Current study was also evaluated with a Computer Aided Detection (CAD) system. There are benign calcifications in the right breast. No significant masses, calcifications, or other findings are seen in the breast. There has been no significant interval change. IMPRESSION: There is no mammographic evidence of malignancy. A 1 year screening mammogram is recommended. This exam was interpreted at Station ID: [id number]. NOTE: For mammograms, a report in lay terms will be sent to the patient. Approximately 15% of breast malignancies will not be visualized mammographically. In the management of a palpable breast mass, a negative mammogram must not discourage biopsy of a clinically suspicious lesion. Electronically Signed By: Kennedy [email or web address]/[email or web address]:09/28/2018 06:18:21 copy to: Sofi [place] letter sent: Normal Exam ACR BI-RADS Category 2: Benign Finding(s) [id number]
== END ==
PROVIDERS: Family Provider Internal Medicine
DX: Z12.31 Encounter for screening mammogram for malignant neoplasm of breast (principal); Z85.3 Personal history of malignant neoplasm of breast
CPT/HCPCS: 77063; 77067

== ENCOUNTER 2019-04-09 12:30 | Emergency (ER) | payer OTHER, SELFPAY ==
[2019-04-09 12:36] VITALS: BP 157/93; PULSE 99; RESP 18; TEMP 36.7; O2SAT 98
--- NOTE | 2019-04-09 19:54 | ED.EYEPROB ---
HPI - Eye Problem <KARMA Rollins - Last Filed: 04/09/19 20:19> General Chief complaint: Eye Problems Stated complaint: left eye swollen Time Seen by Provider: 04/09/19 13:52 Source: patient Mode of arrival: Ambulatory Limitations: no limitations History of Present Illness HPI Narrative: The patient is a 63-year-old female former smoker with history of diabetes who presents with a chief complaint of left eye redness and swelling. She states it started a few days ago and she feels as though her eye stinging. She denies any pain in the back dry. She denies any visual changes. She denies any blurry vision, double vision etcetera. She states she does have recent upper respiratory infection symptoms. Related Data Home Medications Medication Instructions Recorded Confirmed Lantus U-100 Insulin 70 unit SQ Q DAY #0 05/20/16 04/03/19 Novolog Flexpen U-100 Insulin 20 unit SQ TIDCC #0 05/20/16 04/03/19 [VITAMIN D] 5,000 mg PO QDAY #0 05/20/16 04/03/19 aspirin 81 mg PO QDAY #0 05/20/16 04/03/19 losartan [Cozaar] 25 mg PO QDAY #0 05/20/16 04/03/19 metformin [Glucophage] 1,000 mg PO BIDCC #0 05/20/16 04/03/19 simvastatin [Zocor] 40 mg PO HS #0 05/20/16 04/03/19 Probiotic 1 tab PO QAM 09/27/17 04/03/19 Previous Rx's Medication Instructions Recorded letrozole [Femara] 2.5 mg PO QDAY #90 tab 02/08/17 letrozole 2.5 mg PO DAILY #90 tab 04/03/19 polymyxin B sulf-trimethoprim 1 drop EYE-LEFT 6XD 10 Days #10 ml 04/09/19 Allergies Allergy/AdvReac Type Severity Reaction Status Date / Time No Known Drug Allergies Allergy Verified 04/09/19 12:40 Review of Systems <KARMA Rollins - Last Filed: 04/09/19 20:19> Review of Systems Narrative: GENERAL: Denies chills, fatigue, malaise, fever, sweats. HEENT: See HPI RESPIRATORY: Denies dyspnea, cough, wheezing, hemoptysis, sputum. CARDIOVASCULAR: Denies chest pain, palpitations, orthopnea, edema, GASTROINTESTINAL: Denies nausea, vomiting, abdominal pain, diarrhea, constipation, melena. : Denies dysuria, frequency, incontinence, hematuria, urinary retention. MUSCULOSKELETAL: denies weakness, joint pain, or bony pain SKIN: Denies rash, skin lesions, or other NEUROLOGIC: Denies weakness, headache, numbness, change in speech, confusion, seizures, incoordination. PSYCHIATRIC: No concerning psychosocial issues. 12 point review of systems is negative except for those stated above Patient History [facility] - Last Filed: 04/09/19 20:19> Social History Smoking Status: Former smoker Smoking Status: Former smoker alcohol intake frequency: 0-2 drinks per day Substance Use Type: does not use Exam [facility] - Last Filed: 04/09/19 20:19> Narrative Exam Narrative: GENERAL: This is a well-nourished, well-developed patient, no acute distress HEAD: Atraumatic. Normocephalic. No temporal or scalp tenderness. EYES: Pupils equal round and reactive. Extraocular motions intact. No scleral icterus. Left eye with slight erythema noted on lid, not extending past lid or distal to eye. Slight watery drainage noted. No obvious stye. Slight erythema of scleral noted. ENT: Nose without bleeding, purulent drainage or septal hematoma. Throat without erythema, tonsillar hypertrophy or exudate. Uvula midline. Airway patent. NECK: Trachea midline. No JVD or lymphadenopathy. Supple, nontender, no meningeal signs. CARDIOVASCULAR: Regular rate and rhythm RESPIRATORY: No cough. No increased respiratory effort. No accessory muscle use. EXTREMITIES: No clubbing, cyanosis, or edema. No joint tenderness, effusion, or edema noted. BACK: Nontender without deformity or crepitance. No flank tenderness. NEURO: AOx3. SKIN: No rash or erythema on visible skin other than eye exam Initial Vital Signs Initial Vital Signs: Vital Signs Temperature 98.1 F 04/09/19 12:36 Pulse Rate 99 H 04/09/19 12:36 Respiratory Rate 18 04/09/19 12:36 Blood Pressure 157/93 H 04/09/19 12:36 Pulse Oximetry 98 04/09/19 12:36 <Batool Galan MD - Last Filed: 04/16/19 08:08> Initial Vital Signs Initial Vital Signs: Vital Signs Temperature 98.1 F 04/09/19 12:36 Pulse Rate 99 H 04/09/19 12:36 Respiratory Rate 18 04/09/19 12:36 Blood Pressure 157/93 H 04/09/19 12:36 Pulse Oximetry 98 04/09/19 12:36 Course <KARMA Rollins - Last Filed: 04/09/19 20:19> Vital Signs Vital signs: Vital Signs - 8 hr 04/09/19 12:36 Temperature 98.1 F Pulse Rate 99 H Respiratory Rate 18 Blood Pressure 157/93 H Pulse Oximetry 98 <Batool Galan MD - Last Filed: 04/16/19 08:08> Vital Signs Vital signs: Vital Signs - 8 hr 04/09/19 12:36 Temperature 98.1 F Pulse Rate 99 H Respiratory Rate 18 Blood Pressure 157/93 H Pulse Oximetry 98 MDM - Eye Problem <KARMA Rollins - Last Filed: 04/09/19 20:19> MDM Narrative Medical decision making narrative: The patient is a 63-year-old female who presents with a chief complaint of swelling and pain around her left eye. Exam indicates conjunctivitis. Will treat with antibiotic drops at this point time. Encouraged warm compresses, discussed monitoring for spreading of erythema and coming back to the emergency department for any acute signs of visual distress. Patient is adamant that she has no impact on her vision at this point time. Discussed follow-up with primary care provider. Patient has no questions or concerns upon discharge and states understanding of return precautions as well as follow-up care. Discharge Plan Departure Patient Disposition: Home Clinical Impression: Bacterial conjunctivitis Discharge Date/Time: 04/09/19 14:56 Instructions: Conjunctivitis (Alternative Therapy), DI for Conjunctivitis, DI for Hordeolum Activity Restrictions/Additional Instructions: I sent a prescription of antibiotic drops to [facility] in [place] Please use warm compresses several times a day Please follow-up with primary care provider in a few days Please come back to the emergency department for any acute concerns such as vision difficulties. Please monitor for spreading redness beyond your eye. Please come back to emergency department for any acute concerns Prescriptions: New polymyxin B sulf-trimethoprim 10,000 unit- 1 mg/mL drops 1 drop EYE-LEFT 6XD 10 Days Qty: 10 RF: 0 No Action Novolog Flexpen U-100 Insulin 100 UNIT/1 ML insulin pen 20 unit SQ TIDCC Qty: 0 RF: 0 Lantus U-100 Insulin 100 UNIT/1 ML solution 70 unit SQ Q DAY Qty: 0 RF: 0 simvastatin [Zocor] 40 MG tablet 40 mg PO HS Qty: 0 RF: 0 metformin [Glucophage] 1,000 MG tablet 1,000 mg PO BIDCC Qty: 0 RF: 0 losartan [Cozaar] 25 MG tablet 25 mg PO QDAY Qty: 0 RF: 0 aspirin 81 MG tablet,delayed release (DR/EC) 81 mg PO QDAY Qty: 0 RF: 0 [VITAMIN D] 5,000 mg PO QDAY Qty: 0 RF: 0 letrozole [Femara] 2.5 MG tablet 2.5 mg PO QDAY Qty: 90 RF: 2 Probiotic 1 tab PO QAM RF: 0 letrozole 2.5 mg Tablet 2.5 mg PO DAILY Qty: 90 RF: 1 Referrals: Julito Li MD [Primary Care Provider] -
== END 2019-04-09 14:56 | disposition home or self-care (01) ==
PROVIDERS: Emergency Provider Nurse Practitioner Family; Family Provider Internal Medicine
DX: H10.32 Unspecified acute conjunctivitis, left eye (principal)
CPT/HCPCS: 99281; 99283

== ENCOUNTER → 2019-09-30 14:16 | Outpatient (CLI) | payer MEDICARE, OTHER, SELFPAY ==
--- NOTE | 2019-09-30 | DI.MG.S_ITS ---
UNILATERAL RIGHT DIGITAL SCREENING MAMMOGRAM 3D/2D WITH CAD POST MASTECTOMY: 09/30/2019 CLINICAL: Routine screening. Personal history of left breast cancer. Comparison is made to exams dated: 09/27/2018 mammogram, 09/26/2017 mammogram, and 09/19/2016 mammogram - [facility]. The tissue of right breast is predominantly fatty. Current study was also evaluated with a Computer Aided Detection (CAD) system. There are benign calcifications in the right breast. No significant masses, calcifications, or other findings are seen in the breast. There has been no significant interval change. IMPRESSION: There is no mammographic evidence of malignancy. A 1 year screening mammogram is recommended. This exam was interpreted at Station ID: [id number]. NOTE: For mammograms, a report in lay terms will be sent to the patient. Approximately 15% of breast malignancies will not be visualized mammographically. In the management of a palpable breast mass, a negative mammogram must not discourage biopsy of a clinically suspicious lesion. Electronically Signed By: Kennedy mcneill/mei:09/30/2019 15:43:18 copy to: Sofi [place] letter sent: Normal Exam ACR BI-RADS Category 2: Benign Finding(s) 3342F
== END ==
PROVIDERS: Family Provider Internal Medicine; Referring Provider Internal Medicine; Visit Provider Internal Medicine
DX: Z12.31 Encounter for screening mammogram for malignant neoplasm of breast (principal); Z85.3 Personal history of malignant neoplasm of breast; Z78.0 Asymptomatic menopausal state; E11.9 Type 2 diabetes mellitus without complications; Z82.62 Family history of osteoporosis; Z87.891 Personal history of nicotine dependence
CPT/HCPCS: 77063; 77067; 77080

== ENCOUNTER → 2020-10-23 13:36 | Outpatient (CLI) | payer MEDICARE, OTHER, SELFPAY ==
--- NOTE | 2020-10-23 | DI.MG.S_ITS ---
UNILATERAL RIGHT DIGITAL SCREENING MAMMOGRAM 3D/2D WITH CAD POST MASTECTOMY: 10/23/2020 CLINICAL: Routine screening. Personal history of left breast cancer. Comparison is made to exams dated: 09/30/2019 mammogram, 09/27/2018 mammogram, and 09/26/2017 mammogram - [facility]. There are scattered fibroglandular elements in right breast. Current study was also evaluated with a Computer Aided Detection (CAD) system. No significant masses, calcifications, or other findings are seen in the breast. There has been no significant interval change. IMPRESSION: NEGATIVE There is no mammographic evidence of malignancy. A 1 year screening mammogram is recommended. This exam was interpreted at Station ID: [id number]. NOTE: For mammograms, a report in lay terms will be sent to the patient. Approximately 15% of breast malignancies will not be visualized mammographically. In the management of a palpable breast mass, a negative mammogram must not discourage biopsy of a clinically suspicious lesion. Electronically Signed By: Isidoro fernandez/mei:10/23/2020 14:01:48 copy to: Sofi [place] letter sent: Normal Exam ACR BI-RADS Category 1: Negative 3341F
== END ==
PROVIDERS: Family Provider Internal Medicine; PCP Internal Medicine; Referring Provider Internal Medicine Medical Oncology; Visit Provider Internal Medicine
DX: Z12.31 Encounter for screening mammogram for malignant neoplasm of breast (principal); Z80.3 Family history of malignant neoplasm of breast
CPT/HCPCS: 77063; 77067

== ENCOUNTER → 2021-10-25 11:40 | Outpatient (CLI) | payer MEDICARE, OTHER, SELFPAY ==
--- NOTE | 2021-10-25 11:41 | DI.MG.S_ITS ---
UNILATERAL RIGHT DIGITAL SCREENING MAMMOGRAM 3D/2D WITH CAD: 10/25/2021 CLINICAL: Routine screening. Breast cancer. Comparison is made to exams dated: 10/23/2020 mammogram, 09/30/2019 mammogram, and 09/27/2018 mammogram - [facility]. The tissue of right breast is predominantly fatty. Current study was also evaluated with a Computer Aided Detection (CAD) system. No significant masses, calcifications, or other findings are seen in the breast. There has been no significant interval change. IMPRESSION: NEGATIVE There is no mammographic evidence of malignancy. A 1 year screening mammogram is recommended. This exam was interpreted at Station ID: [id number]. NOTE: For mammograms, a report in lay terms will be sent to the patient. Approximately 15% of breast malignancies will not be visualized mammographically. In the management of a palpable breast mass, a negative mammogram must not discourage biopsy of a clinically suspicious lesion. Electronically Signed By: Candido goetz/mei:10/25/2021 12:18:05 copy to: KINZA LEMA letter sent: Normal Exam ACR BI-RADS Category 1: Negative 3341F
== END ==
PROVIDERS: Family Provider Internal Medicine; PCP Internal Medicine; Referring Provider Internal Medicine Medical Oncology; Visit Provider Internal Medicine Medical Oncology
DX: Z85.3 Personal history of malignant neoplasm of breast (principal); M81.0 Age-related osteoporosis without current pathological fracture; Z12.31 Encounter for screening mammogram for malignant neoplasm of breast
CPT/HCPCS: 77063; 77067; 77080

== ENCOUNTER 2022-03-28 12:17 | Day surgery (SDC) | payer MEDICARE, OTHER, SELFPAY ==
--- NOTE | 2022-03-28 | PATH_ITS ---
[facility] Accession Number: [id number] . 01 Material submitted: . PART A: stomach - ANTRUM PART B: esophagus, E-G Junction - GE JUNCTION . 01 Diagnosis: A. Stomach, Antrum, Biopsy: Antral mucosa with mild chronic gastritis. Negative for Helicobacter organisms by immunohistochemistry. Negative for intestinal metaplasia. Negative for dysplasia or malignancy. . B. Gastroesophageal Junction, Biopsy: Squamocolumnar junctional mucosa with no diagnostic abnormality. Negative for intestinal metaplasia. Negative for dysplasia and malignancy. . JNL 03/31/2022 1716 Local . 01 Electronically signed: . Tonie Win MD, Pathologist NPI- [id number] . 01 Gross description: . Part A: ANTRUM: Received in formalin are 2 fragment(s) of qureshi, soft tissue measuring 0.3 x 0.1 x 0.1 cm to 0.1 x 0.1 x 0.1 cm submitted entirely in 1 cassette(s) Part B: GE JUNCTION: Received in formalin are 2 fragment(s) of qureshi, soft tissue measuring 0.2 x 0.1 x 0.1 cm to 0.1 x 0.1 x 0.1 cm submitted entirely in 1 cassette(s) /CPE 03/29/2022 0901 Local . 01 Microscopic: . A. An immunohistochemical stain was performed to evaluate for Helicobacter organisms and is negative. The control stain showed appropriate reactivity. . B. An ABPAS stain was performed to evaluate for intestinal metaplasia, and is negative. The control stain showed appropriate reactivity. . * This test was developed and its performance characteristics determined by [employer]. It has not been cleared or approved by the U.S. Food and Drug Administration. The FDA has determined that such clearance or approval is not necessary. This test is used for clinical purposes. It should not be regarded as investigational or for research. . 01 Pathologist provided ICD-10: R13.10 . 01 CPT . 436566, 783687, F69335, 408726 Specimen Comment: A courtesy copy of this report has been sent to [phone] Performed at: 01 [facility] [address] [place] [address], [place], [place] [id number] MD Isidoro Chiang MD Phone: [phone]
[2022-03-28 13:08] VITALS: BP 152/98; PULSE 114; RESP 16; TEMP 36.6; O2SAT 94; BMI 37.1
[2022-03-28 13:09] LABS: COVID19 -Nasal RAPID Negative (Negative)
--- NOTE | 2022-03-28 13:12 | PM.HP.1 ---
History of Present Illness History of Present Illness Date Patient Seen: 03/28/22 Time Patient Seen: 13:12 Chief complaint: DX COLONOSCOPY/EGD Narrative: I reviewed my recent office note. No significant changes with the exception of overall improvement on daily omeprazole. No ongoing symptoms of dysphagia. Patient History Family & Social History Tobacco & Substance use: Smoking Status Former smoker alcohol intake frequency 0-2 drinks per day Substance Use Type does not use Meds Home Medications and Allergies Home Medications Medication Instructions Recorded Confirmed Type [VITAMIN D] 5,000 mg PO QDAY ##0 05/20/16 10/27/21 History insulin aspart U-100 100 unit/mL 15 unit SQ TIDCC ##0 05/20/16 10/27/21 History (3 mL) subcutaneous pen (Novolog Flexpen U-100 Insulin aspart) insulin glargine 100 unit/mL 48 unit SQ Q DAY ##0 05/20/16 10/27/21 History subcutaneous solution (Lantus U-100 Insulin) losartan 25 mg tablet (Cozaar) 25 mg PO QDAY ##0 05/20/16 10/27/21 History metformin 1,000 mg tablet 1,000 mg PO BIDCC ##0 05/20/16 10/27/21 History (Glucophage) simvastatin 40 mg tablet (Zocor) 40 mg PO HS ##0 05/20/16 10/27/21 History letrozole 2.5 mg tablet 2.5 mg PO DAILY #90 tabs 04/03/19 10/27/21 Rx dulaglutide 3 mg/0.5 mL 3 mg SUBCUT QWEEK 10/27/20 10/27/20 History subcutaneous pen injector (Trulicity) letrozole 2.5 mg tablet (Femara) 2.5 mg PO QDAY #90 tabs 08/10/21 10/27/21 Rx hydrochlorothiazide 25 mg tablet 25 mg PO DAILY 10/27/21 10/27/21 History Allergies Allergy/AdvReac Type Severity Reaction Status Date / Time No Known Drug Allergies Allergy Verified 03/28/22 13:07 Review of Systems Review of Systems ROS: Yes All systems reviewed with the patient and are negative except as otherwise documented Exam Const General: cooperative HENMT Head: normal to inspection Eyes General: appearance normal, both eyes and all related structures Neck Neck: normal visual inspection Chest Chest: normal inspection of the chest Resp Effort & Inspection: normal respiratory effort Cardio Rate: regular rate GI Inspection: normal to inspection Skin General: no rashes or lesions noted Neuro General: patient alert and patient awake Extrem General: normal to inspection and no pedal edema Psych Appearance: grossly normal Objective Labs Labs: Laboratory Results - last 24 hr 03/28/22 12:39 SARS-CoV-2 (PCR) Negative Assessment & Plan Assessment & Plan narrative: 66-year-old female with GERD and dysphagia. Overall improved on PPI. She also has presented for colon cancer screening. EGD and colonoscopy are pursued today. Time Spent With Patient Critical Care time: I spent a total of [] minutes of critical care time on this patient's care today; this time is exclusive of procedural time.
--- NOTE | 2022-03-28 13:19 | PM.PREOP ---
Pre-operative Note COVID-19 COVID-19 status: Negative Result date/Date tested (Pos, Neg/Pending): 03/28/22 Criteria for continued procedure: Possibility delay results in more complex future surgery or treatment Interval Note History & Physical reviewed/Exam performed by Physician: Yes Changes to H&P: No ASA Class (for procedural sedation): III
[2022-03-28] MEDS: LACTATED RINGERS 1,000 ML 42 ML IV (13:25)
--- NOTE | 2022-03-28 14:55 | PM.OP.EC ---
Operative Date/Time/Diagnoses Date of procedure: 03/28/22 Time of procedure: 14:56 Pre-op diagnosis: GERD dysphagia colon cancer screening. Post-op diagnosis: same Procedure & Clinicians Study performed: EGD with biopsies and colonoscopy Same procedure as scheduled: Yes Indications: GERD dysphagia and colon cancer screening. Surgeon: Rigoberto Roblero Procedure Notes SCOAP/Timeout: Done Procedure in detail: After the risks and benefits were explained, written and verbal informed consent was obtained. The patient was brought into the procedure room and placed into the left lateral decubitus position. Please see nurse senior electrical designer notes for sedation details. The scope was introduced into the mouth through the bite block and advanced under direct visualization to the 2nd portion of the duodenum. The scope was slowly withdrawn carefully examining the mucosa for any defects or lesions. Retroflexed views were accomplished in the stomach. The stomach was decompressed, the scope was then removed from the patient who tolerated the procedure well. The patient was then turned around, a digital rectal examination was accomplished. No significant pathology appreciated. Mild internal hemorrhoids. Grade 2. The scope was introduced into the rectum and advanced to the cecum as identified by the appendiceal orifice and ileocecal valve. The scope was slowly withdrawn to carefully examine the mucosa for any defects or lesions. Multiple direct views were made through the dentate line for exclusion of pathology. The colon was decompressed. The scope was removed from the patient who tolerated the procedure well. Pediatric colonoscope Bowel prep adequate Scope withdrawal time: 9 minutes Sedation minutes: 27 Complications: none Impression: 1. Duodenum: This was visually unremarkable from the bulb through the 2nd portion. Some scattered noninflammatory erythema was noted in the bulb. No ulcers no mass lesions. 2. Stomach: No outlet obstruction. No ulcers no mass lesions. Mild erosive gastropathy was noted and antral biopsies were acquired for exclusion of H pylori or other pathology. Retroflexed views of the LES disclosed a subtle sliding hiatal hernia. 3. Esophagus: The squamocolumnar junction correlated with the top of the gastric folds. GE junction was at about 37 cm from the incisors. No evidence of any stricture nor Schatzki's ring. There was some mild probably inflammatory irregularity at the GE junction and biopsy was acquired at this location for histopathologic analysis. The remainder of the esophagus was visually unremarkable. 4. Colon: No significant polyps mass lesions or inflammatory features identified throughout. Grade 1-2 internal hemorrhoids were noted. Endoscopic diagnosis 1. Erosive gastropathy 2. Subtle sliding hiatal hernia 3. Subtle GE junction esophagitis 4. Grade 1-2 hemorrhoids 5. Otherwise visually unremarkable colonoscopy Post-procedure Plan for aftercare: 1. Await histopathology. 2. Continue with once daily omeprazole. 3. Repeat colonoscopy 10 years. Disposition: PACU
[2022-03-28 15:01] VITALS: BP 142/85; PULSE 102; RESP 14; TEMP 36.3; O2SAT 95
[2022-03-28 15:06] VITALS: BP 163/95; PULSE 100; RESP 17; O2SAT 96
[2022-03-28 15:14] VITALS: PULSE 92; RESP 16; TEMP 36.1; O2SAT 97
[2022-03-28 15:16] VITALS: BP 137/92
== END 2022-03-28 15:29 | disposition home or self-care (01) ==
PROVIDERS: Family Provider Internal Medicine; PCP Internal Medicine; Referring Provider Internal Medicine Gastroenterology; Visit Provider Internal Medicine Gastroenterology
PROC: 0DJD8ZZ Inspection of Lower Intestinal Tract, Via Natural or Artificial Opening Endoscopic (ICD-10-PCS; CPT 45378; principal; 2022-03-28 14:00)
PROC: 0DJ08ZZ Inspection of Upper Intestinal Tract, Via Natural or Artificial Opening Endoscopic (ICD-10-PCS; CPT 43235; 2022-03-28 14:00)
DX: Z12.11 Encounter for screening for malignant neoplasm of colon (principal); K21.9 Gastro-esophageal reflux disease without esophagitis; R13.10 Dysphagia, unspecified; K31.9 Disease of stomach and duodenum, unspecified; K44.9 Diaphragmatic hernia without obstruction or gangrene; K20.90 Esophagitis, unspecified without bleeding; K64.1 Second degree hemorrhoids; Z20.822 Contact with and (suspected) exposure to COVID-19; K29.50 Unspecified chronic gastritis without bleeding
CPT/HCPCS: 43239; G0121; 36415; 87635; J2704; J3010

== ENCOUNTER → 2022-10-28 13:00 | Outpatient (CLI) | payer MEDICARE, OTHER, SELFPAY ==
--- NOTE | 2022-10-28 13:05 | DI.MG.S_ITS ---
UNILATERAL RIGHT DIGITAL SCREENING MAMMOGRAM 3D/2D WITH CAD: 10/28/2022 CLINICAL: Routine screening. Personal history of left breast cancer - left mastectomy. Comparison is made to exams dated: 10/25/2021 mammogram, 10/23/2020 mammogram, and 09/30/2019 mammogram - [facility]. The right breast is almost entirely fatty (category a/<25% glandular tissue). Current study was also evaluated with a Computer Aided Detection (CAD) system. No significant masses, calcifications, or other findings are seen in the breast. There has been no significant interval change. IMPRESSION: NEGATIVE There is no mammographic evidence of malignancy. A 1 year screening mammogram is recommended. This exam was interpreted at Station ID: [id number]. NOTE: For mammograms, a report in lay terms will be sent to the patient. Approximately 15% of breast malignancies will not be visualized mammographically. In the management of a palpable breast mass, a negative mammogram must not discourage biopsy of a clinically suspicious lesion. Electronically Signed By: Gregory hayes/mei:10/28/2022 14:56:29 copy to: KINZA LEMA letter sent: Normal Exam ACR BI-RADS Category 1: Negative 3341F
== END ==
PROVIDERS: Family Provider Internal Medicine; PCP Student in an Organized Health Care Education/Training Program; Referring Provider Internal Medicine; Visit Provider Internal Medicine
DX: Z12.31 Encounter for screening mammogram for malignant neoplasm of breast (principal); Z80.3 Family history of malignant neoplasm of breast; Z90.12 Acquired absence of left breast and nipple
CPT/HCPCS: 77063; 77067

== ENCOUNTER → 2023-10-30 13:04 | Outpatient (CLI) | payer MEDICARE, OTHER, SELFPAY ==
--- NOTE | 2023-10-30 13:07 | DI.MG.S_ITS ---
UNILATERAL RIGHT DIGITAL SCREENING MAMMOGRAM 3D/2D WITH CAD POST MASTECTOMY: 10/30/2023 CLINICAL: Routine screening. Personal history of left breast cancer. Comparison is made to exams dated: 10/28/2022 mammogram, 10/25/2021 mammogram, and 10/23/2020 mammogram - [facility]. The right breast is almost entirely fatty (category a/<25% glandular tissue). Current study was also evaluated with a Computer Aided Detection (CAD) system. No significant masses, calcifications, or other findings are seen in the breast. There has been no significant interval change. IMPRESSION: NEGATIVE There is no mammographic evidence of malignancy. A 1 year screening mammogram is recommended. This exam was interpreted at Station ID: [id number]. NOTE: For mammograms, a report in lay terms will be sent to the patient. Approximately 15% of breast malignancies will not be visualized mammographically. In the management of a palpable breast mass, a negative mammogram must not discourage biopsy of a clinically suspicious lesion. Electronically Signed By: Gregory hayes/mei:10/30/2023 13:44:03 copy to: KINZA LEMA copy to: ARIEL MILLS letter sent: Normal Exam ACR BI-RADS Category 1: Negative 3341F
[2023-10-30 13:38] LABS: Add Manual Diff / Slide Review NO; Basophils Absolute Auto 100 /uL (0-100); Basophils Percent Auto 1.1 % (0-2); Eosinophils Absolute Auto 100 /uL (0-450); Lymphocytes Absolute Auto 1800 /uL (1100-4500); Lymphocytes Percent Auto 15.7 % (25-40); Mean Corpuscular HGB Conc 33.4 % (30-36); Monocytes Absolute Auto 600 /uL (0-900); Monocytes Percent Auto 4.9 % (3-14); Neutrophils Absolute Auto 8800 /uL (1500-7000); Neutrophils Percent Auto 77.3 % (50-75); Platelet Count 366 X10^3/uL (150-400); Red Blood Cell Count 4.66 X10^6/uL (4.0-5.2); Red Cell Distribution Width 13.5 % (11.6-14.8); White Blood Cell Count 11.4 X10^3/uL (4.5-11.0)
[2023-10-30 13:56] LABS: Alanine Aminotransferase 15 IU/L (<35); Albumin 3.9 g/dL (3.5-5.0); Albumin Globulin Ratio 1.1 (1.0-2.8); Alkaline Phosphatase 81 U/L (38-126); Aspartate Aminotransferase 18 IU/L (14-36); BUN Creatinine Ratio 19.9 (6-22); Bilirubin Total 0.4 mg/dL (0.2-1.3); Blood Urea Nitrogen 31 mg/dL (7-17); Calcium 9.1 mg/dL (8.4-10.2); Carbon Dioxide 24 mmol/L (22-32); Chloride 105 mmol/L (98-107); Estimated Glomerular Filt Rate 36 mL/min (>60); Globulin 3.4 g/dL (1.7-4.1); Glucose 203 mg/dL (80-110); HEMOLYSIS < 15 (0-50); Potassium 4.5 mmol/L (3.4-5.1); Sodium 138 mmol/L (137-145); Total Protein 7.3 g/dL (6.3-8.2)
== END ==
PROVIDERS: Family Provider Internal Medicine; PCP Physician Assistant; Referring Provider Internal Medicine Hematology & Oncology; Visit Provider Internal Medicine Hematology & Oncology
DX: Z12.31 Encounter for screening mammogram for malignant neoplasm of breast (principal); C50.912 Malignant neoplasm of unspecified site of left female breast; R92.311 Mammographic fatty tissue density, right breast
CPT/HCPCS: 36415; 77063; 77067; 80053; 85025

== ENCOUNTER → 2024-10-30 10:14 | Outpatient (CLI) | payer MEDICARE, OTHER, SELFPAY ==
--- NOTE | 2024-10-30 10:16 | DI.MG.S_ITS ---
MM screening mammo unilat RT: 10/30/2024. BI-RADS: 1 CLINICAL: 69-year old female for right screening mammogram. No Tyrer-Cuzick risk score calculation due to the patient's personal history of breast cancer. Patient reports a history of left breast carcinoma diagnosed at age 59. Status-post left mastectomy with chemotherapy and hormonal therapy. PRIOR EXAMS 10/30/2023, 10/28/2022, 10/25/2021, 10/23/2020. MAMMOGRAPHY TECHNIQUE: 2D and 3D (tomosynthesis) digital mammographic views obtained, with additional images as needed for full coverage. Current study was also evaluated with a Computer Aided Detection (CAD) system. DENSITY Right: A. The breast is almost entirely fatty. MAMMOGRAPHY FINDINGS Right: No suspicious mass, asymmetry, microcalcification, or other abnormality seen. No significant change from comparison. IMPRESSION: Right * No evidence of malignancy. RECOMMENDATIONS Right * Annual screening mammography. OVERALL ASSESSMENT CATEGORY BI-RADS-1: Negative. The [employer] recommends annual screening mammography beginning at age 40 for women with average risk of breast cancer. ELECTRONICALLY SIGNED: Grace Oliver M.D. on 10/30/2024 at 09:47:45 PM PT Interpreting Station ID: [id number]
== END ==
PROVIDERS: Family Provider Internal Medicine; PCP Physician Assistant; Referring Provider Nurse Practitioner Acute Care; Visit Provider Nurse Practitioner Acute Care
DX: Z12.31 Encounter for screening mammogram for malignant neoplasm of breast (principal); R92.311 Mammographic fatty tissue density, right breast; Z85.3 Personal history of malignant neoplasm of breast; Z90.12 Acquired absence of left breast and nipple
CPT/HCPCS: 77063; 77067